=== PATIENT | female | born 1965 | race Caucasian/White ===

== ENCOUNTER 2022-06-30 13:55 | Emergency (ER) | payer BC, SELFPAY ==
[2022-06-30 14:53] VITALS: BP 140/97; PULSE 79; RESP 16; TEMP 36.7; O2SAT 100
[2022-06-30 16:39] LABS: Alanine Aminotransferase 27 IU/L (<35); Albumin 4.7 g/dL (3.5-5.0); Albumin Globulin Ratio 1.2 (1.0-2.8); Alkaline Phosphatase 106 U/L (38-126); Aspartate Aminotransferase 25 IU/L (14-36); BUN Creatinine Ratio 8.9 (6-22); Bilirubin Total 0.7 mg/dL (0.2-1.3); Blood Urea Nitrogen 8 mg/dL (7-17); Calcium 9.7 mg/dL (8.4-10.2); Carbon Dioxide 25 mmol/L (22-32); Chloride 105 mmol/L (98-107); Estimated Glomerular Filt Rate > 60 mL/min (>60); Glucose 89 mg/dL (70-100); HEMOLYSIS < 15 (0-50); Lipase 122 U/L (23-300); Sodium 143 mmol/L (137-145); Total Protein 8.7 g/dL (6.3-8.2)
[2022-06-30 16:56] LABS: Add Manual Diff / Slide Review NO; Basophils Absolute Auto 100 /uL (0-100); Basophils Percent Auto 0.5 % (0-2); Eosinophils Absolute Auto 100 /uL (0-450); Eosinophils Percent Auto 0.9 % (2-4); Hematocrit 41.6 % (36-46); Hemoglobin 14.6 g/dL (12.0-16.0); Lymphocytes Absolute Auto 3700 /uL (1100-4500); Lymphocytes Percent Auto 39.3 % (25-40); Mean Corpuscular Hemoglobin 27.7 PG (26-34); Mean Corpuscular Volume 79.2 fL (80-100); Monocytes Absolute Auto 400 /uL (0-900); Monocytes Percent Auto 4.4 % (3-14); Neutrophils Absolute Auto 5200 /uL (1500-7000); Neutrophils Percent Auto 54.9 % (50-75); Platelet Count 228 X10^3/uL (150-400); Red Blood Cell Count 5.26 X10^6/uL (4.0-5.2); Red Cell Distribution Width 14.5 % (11.6-14.8); White Blood Cell Count 9.5 X10^3/uL (4.5-11.0)
--- NOTE | 2022-06-30 18:38 | ED.GENADULT ---
HPI - General Adult General Chief complaint: Abdominal Pain Stated complaint: left side and back pain, nausea past week Time Seen by Provider: 06/30/22 18:29 Source: patient Mode of arrival: Ambulatory History of Present Illness HPI narrative: Patient is a 56-year-old female who is here for evaluation of left-sided abdominal and back pain and nausea for the past week. She is also had intermittent diarrhea. No recent antibiotics. No recent travel. She was told in the past that she could take antidiarrheal medicines for her diarrhea but when she takes that she then becomes constipated. No skin changes over the area. Is worse with palpation. Not necessarily worse with eating. Related Data Allergies Allergy/AdvReac Type Severity Reaction Status Date / Time codeine Allergy Rash Verified 06/30/22 14:53 prednisone Allergy Swelling Verified 06/30/22 14:53 of Lip/Tongue/Throat Sulfa (Sulfonamide Allergy Hives Verified 06/30/22 14:53 Antibiotics) tetracycline Allergy Hives Verified 06/30/22 14:53 Review of Systems Constitutional Constitutional: Reports system reviewed and no additional complaints, except as documented Gastrointestinal Gastrointestinal: Reports system reviewed and no additional complaints, except as documented Genitourinary Genitourinary: Reports system reviewed and no additional complaints, except as documented Integumentary/Breasts Skin/Breast: Reports system reviewed and no additional complaints, except as documented Neurologic Neurologic: Reports system reviewed and no additional complaints, except as documented Patient History Social History Smoking Status: Current every day smoker Smoking Status: Current every day smoker tobacco type: vaping Substance Use Type: does not use Exam Initial Vital Signs Initial Vital Signs: Vital Signs Temperature 98.1 F 06/30/22 14:53 Pulse Rate 79 06/30/22 14:53 Respiratory Rate 16 06/30/22 14:53 Blood Pressure 140/97 H 06/30/22 14:53 Pulse Oximetry 100 06/30/22 14:53 Oxygen Delivery Method 06/30/22 14:53 HENMT Head: normal to inspection Resp Auscultation: clear to auscultation bilaterally Percussion: percussion normal Cardio Rate: regular rate Rhythm: regular rhythm GI Inspection: normal to inspection and non-distended Palpation: tender (Left side abdomen) Back/Spine/Pelvis Back: No CVA tenderness Skin General: no rashes or lesions noted Extrem General: normal to inspection Course Orders Ordered: ED Orders 06/30/22 18:40 CT abdomen pelvis w con Stat Discontinued Medications Hydrocodone Bitart/Acetaminophen (Hydrocodone/Acet 5/325 Prepack) 1 bottle MISC SEEINSTR ONE Stop: 06/30/22 20:14 Last Admin: 06/30/22 20:20 Dose: 1 bottle Documented By: TOMÁS Sodium Chloride (Normal Saline 0.9%) 1,000 mls @ 1,000 mls/hr IV BOLUS ONE Stop: 06/30/22 19:39 Last Infusion: 06/30/22 20:23 Dose: 0 mls/hr Documented By: Admin: 06/30/22 19:06 Dose: 1,000 mls/hr Documented By: TMOÁS Morphine Sulfate (Morphine 4 Mg/Ml Inj) 4 mg IV NOW ONE Stop: 06/30/22 18:41 Last Admin: 06/30/22 18:50 Dose: 4 mg Documented By: TOMÁS Ondansetron HCl (Ondansetron 4 Mg/2 Ml Inj) 4 mg IV NOW PRN PRN Reason: Nausea And Vomiting Last Admin: 06/30/22 18:39 Dose: 4 mg Documented By: TOMÁS Vital Signs Vital signs: Vital Signs - 8 hr 06/30/22 19:50 06/30/22 19:51 06/30/22 19:51 Pulse Rate 64 63 Blood Pressure 130/76 Pulse Oximetry 100 99 06/30/22 20:00 06/30/22 20:00 Pulse Rate 65 Blood Pressure 137/83 Pulse Oximetry 97 Medical Decision Making Lab Data Lab results reviewed: Yes I reviewed the patient's lab results. Result diagrams: 06/30/22 16:13 06/30/22 16:13 Labs: Lab Results 06/30/22 06/30/22 Range/Units 16:13 16:13 WBC 9.5 (4.5-11.0) X10^3/uL RBC 5.26 H (4.0-5.2) X10^6/uL Hgb 14.6 (12.0-16.0) g/dL Hct 41.6 (36-46) % MCV 79.2 L (80-100) fL MCH 27.7 (26-34) PG MCHC 35.0 (30-36) % RDW 14.5 (11.6-14.8) % Plt Count 228 (150-400) X10^3/uL Neut % (Auto) 54.9 (50-75) % Lymph % (Auto) 39.3 (25-40) % [place] % (Auto) 4.4 (3-14) % Eos % (Auto) 0.9 L (2-4) % Baso % (Auto) 0.5 (0-2) % Neut # (Auto) 5200 (4140-9510) /uL Lymph # (Auto) 3700 (7112-7847) /uL [place] # (Auto) 400 (0-900) /uL Eos # (Auto) 100 (0-450) /uL Baso # (Auto) 100 (0-100) /uL Sodium 143 (137-145) mmol/L Potassium 4.0 (3.4-5.1) mmol/L Chloride 105 (98-107) mmol/L Carbon Dioxide 25 (22-32) mmol/L BUN 8 (7-17) mg/dL Creatinine 0.90 (0.52-1.04) mg/dL Estimated GFR > 60 (>60) mL/min BUN/Creatinine Ratio 8.9 (6-22) Glucose 89 (70-100) mg/dL Calcium 9.7 (8.4-10.2) mg/dL Total Bilirubin 0.7 (0.2-1.3) mg/dL AST 25 (14-36) IU/L ALT 27 (<35) IU/L Alkaline Phosphatase 106 (38-126) U/L Total Protein 8.7 H (6.3-8.2) g/dL Albumin 4.7 (3.5-5.0) g/dL Globulin 4.0 (1.7-4.1) g/dL Albumin/Globulin Ratio 1.2 (1.0-2.8) Lipase 122 (23-300) U/L Urine Dip Bedside Urine Glucose Negative Bedside Urine Bilirubin - Negative Bedside Urine Ketone - Negative Urine Specific [place] 1.015 Bedside Urine Occult Blood - Negative Bedside Urine pH 6.0 Bedside Urine Protein - Negative Bedside Urine Urobilinogen - Negative Bedside Urine Nitrite - Negative Bedside Urine Leukocytes - Negative Esterase Point of care testing: Urine Dip Bedside Urine Glucose Negative Bedside Urine Bilirubin - Negative Bedside Urine Ketone - Negative Urine Specific [place] 1.015 Bedside Urine Occult Blood - Negative Bedside Urine pH 6.0 Bedside Urine Protein - Negative Bedside Urine Urobilinogen - Negative Bedside Urine Nitrite - Negative Bedside Urine Leukocytes - Negative Esterase Imaging Data CT scan - abdomen/pelvis: Radiologist's Impression: [address] [address] [address] Scan Report Signed Patient: Sita Pizano MR#: [id number] : 1965 Acct:[id number] Age/Sex: 56 / F Date of Service: 06/30/22 Loc: ED Accession Number: [id number] ?? Procedure: CT abdomen pelvis w con Ordering Provider: Nilesh Nath D.O. PROCEDURE:? CT ABDOMEN PELVIS W CON ? INDICATIONS:? left lower quadrant abd pain ? TECHNIQUE:? After the administration of IV contrast, axial sections were acquired from the lung bases to the pubic symphysis.? Coronal and sagittal reformats were performed.? For radiation dose reduction, the following was used:? automated exposure control, adjustment of mA and/or kV according to patient size. ? COMPARISON:? None. ? FINDINGS:? Image quality:? Excellent.? ? Lung bases:? Unremarkable.? ? Heart:? No significant findings. ? ? ABDOMEN: Liver:? Mild hepatic steatosis. Gallbladder:? Surgically absent. Biliary ducts:? Nondilated. Pancreas:? Normal. Spleen:? Normal size. Adrenal Glands:? No nodules. Kidneys and Ureters: Symmetric enhancement.? No nephrolithiasis or hydronephrosis.? No hydroureter. ? Stomach and Bowel:? Mid sigmoid colon demonstrates mild circumferential wall thickening and slight mucosal hyperemia.? There are no diverticula and no pericolonic inflammatory change.? Stomach, and small bowel loops are unremarkable.? Normal appendix. Peritoneum:? No abnormal intraperitoneal fluid.? No free air.? ? Ventral Wall: ? No hernia.? Abdominal Nodes:? No retroperitoneal or mesenteric adenopathy by size criteria.? Vessels:? Aorta and inferior vena cava are normal in size.? ? PELVIS: Pelvic Organs:? The uterus is anteverted.? There are two small calcifications in the expected location of the right ovary which is within normal limits for size.? The left ovary was not seen, possibly surgically absent. Bladder:? Partially decompressed.? Normal wall thickness.? No stone. Pelvic Nodes: No enlarged lymph nodes.? Miscellaneous:? Mild pelvic floor prolapse. ? Bones:? No acute abnormalities.? There has been vertebroplasty change of an L3 compression fracture and probably extruded cement into the L2-3 disc space. ? ? IMPRESSION:? ? 1. Changes suggestive of very mild or resolving sigmoid colitis.? No inflamed diverticula are present.? ? 2. Mild hepatic steatosis. ? 3. Surgical absence of the gallbladder and probably left ovary. ? 4. Mild pelvic floor prolapse.? ? Dictated by: Krystal Senior M.D. on 06/30/2022 at 19:37 ? ? Approved by: Krystal Senior M.D. on 06/30/2022 at 19:44?? MDM Narrative Medical decision making narrative: Labs are reassuring and CT scan does show indication of colitis but without signs of diverticulitis. No current indication for antibiotics. We did discuss the use of the antidiarrheal medication and use if she is unable to stay hydrated otherwise avoiding the use of this medication. Has no skin changes of the area. No indication for surgical consultation. She was given return precautions. She expressed understanding and agreement. Discharge Plan Departure Patient Disposition: Home Clinical Impression: Colitis Instructions: DI for Colitis Activity Restrictions/Additional Instructions: I recommend that you use the antidiarrheal medicine like we discussed. Be sure to increase your fluid intake. The pain medicine is for your comfort. Contact your primary doctor when you return home. Return to the emergency department for any new symptoms.
[2022-06-30] MEDS: ONDANSETRON 4 MG/2 ML INJ IV (18:39)
--- NOTE | 2022-06-30 18:40 | DI.CT.S_ITS ---
PROCEDURE: CT ABDOMEN PELVIS W CON INDICATIONS: left lower quadrant abd pain TECHNIQUE: After the administration of IV contrast, axial sections were acquired from the lung bases to the pubic symphysis. Coronal and sagittal reformats were performed. For radiation dose reduction, the following was used: automated exposure control, adjustment of mA and/or kV according to patient size. COMPARISON: None. FINDINGS: Image quality: Excellent. Lung bases: Unremarkable. Heart: No significant findings. ABDOMEN: Liver: Mild hepatic steatosis. Gallbladder: Surgically absent. Biliary ducts: Nondilated. Pancreas: Normal. Spleen: Normal size. Adrenal Glands: No nodules. Kidneys and Ureters: Symmetric enhancement. No nephrolithiasis or hydronephrosis. No hydroureter. Stomach and Bowel: Mid sigmoid colon demonstrates mild circumferential wall thickening and slight mucosal hyperemia. There are no diverticula and no pericolonic inflammatory change. Stomach, and small bowel loops are unremarkable. Normal appendix. Peritoneum: No abnormal intraperitoneal fluid. No free air. Ventral Wall: No hernia. Abdominal Nodes: No retroperitoneal or mesenteric adenopathy by size criteria. Vessels: Aorta and inferior vena cava are normal in size. PELVIS: Pelvic Organs: The uterus is anteverted. There are two small calcifications in the expected location of the right ovary which is within normal limits for size. The left ovary was not seen, possibly surgically absent. Bladder: Partially decompressed. Normal wall thickness. No stone. Pelvic Nodes: No enlarged lymph nodes. Miscellaneous: Mild pelvic floor prolapse. Bones: No acute abnormalities. There has been vertebroplasty change of an L3 compression fracture and probably extruded cement into the L2-3 disc space. IMPRESSION: 1. Changes suggestive of very mild or resolving sigmoid colitis. No inflamed diverticula are present. 2. Mild hepatic steatosis. 3. Surgical absence of the gallbladder and probably left ovary. 4. Mild pelvic floor prolapse. Dictated by: Krystal Senior M.D. on 06/30/2022 at 19:37 Approved by: Krystal Senior M.D. on 06/30/2022 at 19:44
[2022-06-30] MEDS: MORPHINE 4 MG/ML INJ IV (18:50)
[2022-06-30] MEDS: SODIUM CHLORIDE 0.9% 1,000 ML 1000 ML IV (19:06)
[2022-06-30 19:50] VITALS: PULSE 64; O2SAT 100
[2022-06-30 19:51] VITALS: BP 130/76; PULSE 63; O2SAT 99
[2022-06-30 20:00] VITALS: BP 137/83; PULSE 65; O2SAT 97
[2022-06-30] MEDS: HYDROCODONE/ACET 5/325 PREPACK 1 BOTTLE MISC (20:20)
== END 2022-06-30 20:27 | disposition home or self-care (01) ==
PROVIDERS: Emergency Medicine; Emergency Provider Emergency Medicine
DX: K52.9 Noninfective gastroenteritis and colitis, unspecified (principal); R10.32 Left lower quadrant pain
CPT/HCPCS: 36415; 74177; 80053; 81003; 83690; 85025; 96361; 96374; 96375; 99284; J2270; J2405

== ENCOUNTER 2024-05-31 11:13 | Emergency (ER) | payer BC, SELFPAY ==
[2024-05-31] VITALS (8 sets, daily range): BP systolic 137–164; BP diastolic 84–101; PULSE 78–83; RESP 16–18; TEMP 36.4; O2SAT 97–100; BMI 29.6
--- NOTE | 2024-05-31 11:37 | DI.RAD.S_ITS ---
PROCEDURE: XR RIBS LT 2V INDICATIONS: pain after injury TECHNIQUE: 2 views of the ribs were acquired, with a single view of the chest. COMPARISON: [facility], CT, CT ABDOMEN PELVIS W CON, 06/30/2022, 18:40. FINDINGS: Surgical changes and devices: Lower cervical spine fixation hardware can be seen. A few postoperative clips can be seen involving the lower neck and the right axillary region. Lumbar vertebroplasty cement can be seen. Bones and chest wall: No fractures or dislocations. No suspicious bony lesions. Overlying soft tissues appear unremarkable. Lungs and pleura: An incomplete inspiratory result is noted, causing a crowded appearance to the lung markings. No focal infiltrates are seen. No pneumothorax or significant pleural effusions are seen. IMPRESSION: No displaced rib fracture. No pneumothorax is seen. If there is strong clinical concern for chest trauma in this patient, please consider a follow-up chest CT with IV contrast for further evaluation. Dictated by: Nroris Shirley M.D. on 05/31/2024 at 11:44 Approved by: Norris Shirley M.D. on 05/31/2024 at 11:46
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
[2024-05-31] MEDS: HYDROCODONE/ACET 5/325 TABLET 1 TAB PO (18:28)
== END 2024-05-31 18:42 | disposition home or self-care (01) ==
PROVIDERS: Emergency Provider Emergency Medicine
DX: R07.89 Other chest pain (principal); W50.0XXA Accidental hit or strike by another person, initial encounter
CPT/HCPCS: 71101; 99283